=== PATIENT | male | born 2000 | race American Indian/Alaskan Native ===

== ENCOUNTER 2023-11-12 15:34 | Emergency (ER) | payer OTHER ==
[2023-11-12 15:44] VITALS: BP 138/73; O2SAT 97
--- NOTE | 2023-11-12 15:50 | ED Physician Documentation ---
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 He is up-to-date on tetanus. He was working with some sort of loading machine today that crushed his right thumb with an injury and moderate pain. No other injuries. PD PAST MEDICAL HISTORY - Past Medical History Past Medical History: No - Past Surgical History Past Surgical History: No - Present Medications Home Medications: Ambulatory Orders Medication Instructions Recorded Confirmed Bacitracin Zinc Oint 1 applic TOP BID #1 each 11/12/23 HYDROcod/ACETAM 5/325 [Trilla 5/325] 1 - 2 tab PO Q6H PRN #7 tablet 11/12/23 Ibuprofen [Motrin] 600 mg PO Q6H PRN #20 tab 11/12/23 - Allergies Allergies/Adverse Reactions: Allergies Allergy/AdvReac Type Severity Reaction Status Date / Time No Known Drug Allergies Allergy Verified 11/12/23 15:39 - Social History Does the pt smoke?: No Smoking Status: Never smoker Does the pt drink ETOH?: No Does the pt have substance abuse?: No - Immunizations Immunizations are current?: Yes - POLST Patient has POLST: No PD ED PE NORMAL - Vitals Vital signs reviewed: Yes - General General: Alert and oriented X 3, No acute distress - Extremities Extremities: Other (He is tender at the tip of the right thumb where there is a partial skin avulsion measuring about 1 cm. It is not completely through the skin, there is some skin tissue there and no fat exposed. The nail is not loose. No subungual hematoma.) - Psych Psych: Normal mood, Normal affect Results - Vitals Vitals: Vital Signs - 24 hr 11/12/23 15:39 Temperature 36.5 C Heart Rate 79 Respiratory 16 Rate Blood Pressure 138/73 H O2 Saturation 97 - Rads (name of study) Three-view x-ray of the right thumb was normal/negative. Relevant Findings:: Final report received, EMP independent interpretation of test PD Medical Decision Making - ED course ED course: He presents with a partial degloving not completely through all layers of skin of the tip of the right thumb. Should heal well with wound care. Relevant x- ray was negative. He is up-to-date on tetanus. Departure - Departure Disposition: 01 Home, Self Care Clinical Impression: Avulsion of skin of finger Condition: Good Record reviewed to determine appropriate education?: Yes Instructions: ED Laceration Amputation Finger Tip Open Tx Prescriptions: Bacitracin Zinc Oint 1 applic TOP BID #1 each Ibuprofen [Motrin] 600 mg PO Q6H PRN #20 tab PRN Reason: Pain HYDROcod/ACETAM 5/325 [Trilla 5/325] 1 - 2 tab PO Q6H PRN #7 tablet PRN Reason: Pain Comments: You have a avulsion of some of the skin on the tip of your right thumb. It is not all the way through the skin, and the bone is unaffected on x-ray. I sent your prescription electronically to the [facility] in [place]. Once a day you can wash it with soap and water, then apply the antibiotic ointment, and a fingertip Band-Aid. 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 Return for new or worsening symptoms. I am prescribing a short course of narcotic pain medication for you. These are potentially dangerous and addictive medications that should be used carefully. These medications may constipate you. Take an uuux-muz-ozhjgik stool softener (docusate) twice daily with plenty of water while taking these medications. If you go 24 hours without a bowel movement, take zzwu-uvu-opridit miralax, per package instructions. Do not drink or drive while taking these medications. If you received narcotic or sedating medications while in the emergency department, do not drive for 24 hours. Store this medication in a safe, secure place and out of reach of children. It is a violation of federal law to give or sell this medication to another person or to use in a manner other than prescribed. The ED will not refill narcotic prescriptions, including prescriptions lost or stolen. To dispose of unwanted medications: 1. [facility] a [facility] for medication in pill form only (no liquids) 8:00 am to 4:30 p.m. Saturday-Saturday in the lobby of the [facility], [address] [place] [address]. Empty pills into ziplock bag before disposal. Call [phone] for information. 2.[employer] is a free service available to all [facility] residents. Go to [email or web address] Note that many narcotic pain relievers also contain Tylenol/acetaminophen. Please ensure that your total dose of acetaminophen from all sources does not exceed 3 g (3000 mg) per day. Forms: PCP List Discharge Date/Time: 11/12/23 16:20
[2023-11-12] MEDS: IBUPROFEN 800 MG TABLET PO STA (16:02)
[2023-11-12] MEDS: HYDROcod/ACETAM 5/325 MG TABLET PO STA (16:02)
[2023-11-12] MEDS: BACITRACIN ZINC OINT 1 PACKET TOP STA (16:02)
--- NOTE | 2023-11-12 16:23 | XRAY Report ---
PROCEDURE: Finger(s) RT INDICATIONS: R thumb inj TECHNIQUE: AP hand, 2 views of the first finger(s) acquired. COMPARISON: None. FINDINGS: Bones: No fractures or dislocations. No suspicious bony lesions. Soft tissues: No suspicious soft tissue calcifications or masses. IMPRESSION: No acute bony abnormality. Reviewed by: Juanjo Cisse MD on 11/12/2023 4:22 PM PDT Approved by: Juanjo Cisse MD on 11/12/2023 4:22 PM PDT Station ID: [id number]
== END 2023-11-12 16:20 | disposition home or self-care (01) ==
LOC: ED 15:34
DX: S61.001A Unspecified open wound of right thumb without damage to nail, initial encounter (principal); W31.9XXA Contact with unspecified machinery, initial encounter; Y99.0 Civilian activity done for income or pay
CPT/HCPCS: 73140; 99283; 99284; A9270